=== PATIENT | male | born 1950 | race African-American/Black ===

== ENCOUNTER 2018-05-13 22:38 | Emergency (ER) | payer OTHER ==
[~2018-05-13] VITALS: Ht 180.3 cm; Wt 88.5 kg
[~2018-05-13 22:38] MED LIST: FISH OIL 1,001000 M2 PO; MOBIC15 MG PO; NABUMETONE 500500 M1 PO; NORCO 10-325 T1 EACH PO; NORCO 5-325 TA1 EACH PO; NORFLEX100 MG PO; NORVASC10 MG PO; PERCOCET 5-3251 EACH PO; PREDNISONE 10 M10 M1 PO; TRAMADOL 50 MG50 MG PO; VICODIN; ZANAFLEX4 MG PO
[2018-05-13] MEDS ORDERED: AUGMENTIN 875-1 EACH PO (23:14)
[2018-05-13] MEDS ORDERED: PREDNISONE 20 M20 MG PO (23:14)
[2018-05-13 23:43] VITALS: BP 151/91
== END 2018-05-13 23:45 | disposition home or self-care (01) ==
LOC: ER 22:38
DX: J32.8 Other chronic sinusitis (principal); B96.89 Other specified bacterial agents as the cause of diseases classified elsewhere; I10 Essential (primary) hypertension